=== PATIENT | male | born 1985 | race Caucasian/White ===

== ENCOUNTER 2022-03-02 10:06 | Outpatient (CLI) | payer BC, SELFPAY ==
[2022-03-02 13:51] LABS: Albumin* 4.2 g/dL (3.3-5.0); Chloride* 101 mmol/L (96-114); Sodium* 138 mmol/L (135-149)
[2022-03-02 13:52] LABS: Potassium* 4.3 mmol/L (3.6-5.1)
[2022-03-02 13:54] LABS: Alkaline Phosphatase* 79 U/L (40-150); Aspartate Amino Transferase* 32 U/L (12-35); Bilirubin Total* 0.3 mg/dL (0.1-1.5); Blood Urea Nitrogen* 14 mg/dL (5-24); Carbon Dioxide* 28 mmol/L (20-32); Creatinine* 1.1 mg/dL (0.5-1.5); Estimated Glomerular Filt Rate 89 ml/min; Lipase* 51 U/L (23-300); Total Protein* 7.5 g/dL (6.0-8.3)
[2022-03-02 13:55] LABS: Alanine Aminotransferase* 30 U/L (4-50); Calcium* 9.4 mg/dL (8.4-10.6); Glucose* 105 mg/dL (60-115)
== END 2022-03-02 10:07 | disposition home or self-care (01) ==
PROVIDERS: PCP Physician Assistant Medical; Visit Provider Physician Assistant Medical
DX: R11.10 Vomiting, unspecified (principal); K21.9 Gastro-esophageal reflux disease without esophagitis
CPT/HCPCS: 80053; 83690; 84443

== ENCOUNTER 2022-03-21 10:07 | Outpatient (CLI) | payer BC, SELFPAY ==
--- NOTE | 2022-03-21 11:31 | W.ANESCHARGE ---
Anesthesia Charges Start Date/Time Anesthesia Start Date: 03/21/22 Anesthesia Start Time: 11:06 Stop Date/Time Anesthesia Stop Date: 03/21/22 Anesthesia Stop Time: 11:27 Summary Emergency: No
--- NOTE | 2022-03-21 12:12 | W.ANESCHARGE ---
Anesthesia Charges Start Date/Time Anesthesia Start Date: 03/21/22 Anesthesia Start Time: 11:06 Stop Date/Time Anesthesia Stop Date: 03/21/22 Anesthesia Stop Time: 11:27 Summary Emergency: No
== END 2022-03-21 10:08 | disposition home or self-care (01) ==
LOC: OP CLINIC 10:07
PROVIDERS: PCP Physician Assistant Medical; Visit Provider Surgery
DX: R11.10 Vomiting, unspecified (principal); K21.9 Gastro-esophageal reflux disease without esophagitis; K22.10 Ulcer of esophagus without bleeding; K44.9 Diaphragmatic hernia without obstruction or gangrene; K31.89 Other diseases of stomach and duodenum
CPT/HCPCS: 00731; 43239; 88305; 88341; 88342; J2704; J3490

== ENCOUNTER 2022-04-27 08:12 | Outpatient (CLI) | payer BC, SELFPAY ==
[2022-04-27 14:02] LABS: Iron* 49 ug/dL (49-181)
[2022-04-27 14:13] LABS: Percent Iron Saturation 12 % (20-50); Total Iron Binding Capacity 404 ug/dL (261-462)
[2022-04-27 15:52] LABS: Vitamin B12* 274 pg/mL (243-894)
[2022-04-28 21:44] LABS: Sex Hormone Binding Globulin 30 nmol/L (17-56); Testosterone, Adult Male 187 ng/dL (300-1080); Testosterone, Free Calculation 34 pg/mL (47-244); Testosterone, Percentage Free 1.8 % (1.6-2.9)
[2022-04-28 23:17] LABS: Prolactin 953.1 ng/mL (2.1-17.7)
[2022-04-30 07:09] LABS: Deamidated Gliadin Peptide IgA 82 Units (0-19); Tissue Transglutaminase IgA >100 U/mL (0-3)
== END 2022-04-27 08:13 | disposition home or self-care (01) ==
PROVIDERS: PCP Physician Assistant Medical; Visit Provider Physician Assistant Medical
DX: K21.9 Gastro-esophageal reflux disease without esophagitis (principal); D64.9 Anemia, unspecified
CPT/HCPCS: 82607; 83516; 83540; 83550; 84146; 84270; 84402; 84403; 84443; 86258; 86364

== ENCOUNTER 2022-05-17 07:02 | Outpatient (CLI) | payer BC, SELFPAY ==
--- NOTE | 2022-05-17 07:15 | MR_ITS ---
[facility] [address] [facility] [address] Phone:?[phone] Fax:?[phone] Referring Physician Information: Mary Toure M.D. [id number] [address] Phone:?[phone] Fax:?[phone] Patient:?Renata Vidal D.O.B:?1985 Sex:?Male Phone:?[phone] [facility] MRN:?[id number] Exam Date:?05/17/2022 ? EXAM: MR BRAIN AND PITUITARY GLAND WITHOUT AND WITH CONTRAST CLINICAL INFORMATION: Elevated prolactin, history of prolactinoma. COMPARISON:?MRI pituitary 10/15/2020. TECHNICAL INFORMATION: Axial T2 FLAIR, T2 FSE, and diffusion/ADC images of the brain along with coronal and sagittal T1-weighted and coronal T2 FSE images through the pituitary sella. Following intravenous administration of 15 mL gadoterate meglumine, sagittal and coronal T1-weighted images through the pituitary sella were obtained. INTERPRETATION: Slightly decreased size of the pituitary mass centered to the right of midline within the expanded sella turcica, measuring 1.3 cm craniocaudal by 1.6 cm transverse by 2.0 cm AP, no evidence of cavernous sinus invasion. Stable marked leftward deviation of the pituitary sella. Suprasellar cistern is clear. No acute hemorrhage or infarct. No midline shift. Ventricles and sulci are normal in size. Stable scattered mild to moderate white matter T2 hyperintensities. Basal cisterns are clear. Major intracranial flow voids are present. No cerebellar tonsillar herniation. Orbital structures appear normal. Retention cyst in the left maxillary sinus. Mastoid air cells are clear. Normal-appearing scalp and calvarium. CONCLUSION: 1. Slightly decreased size of the pituitary mass consistent with adenoma. 2. Stable right scattered white matter T2 hyperintensities, possibly representing premature chronic small vessel ischemic change sequelae of various infectious/inflammatory etiologies. Electronically signed on 05/18/2022 12:42:00 AM by Sherwin Santos M.D.
== END 2022-05-17 07:03 | disposition home or self-care (01) ==
LOC: MRI 07:03
PROVIDERS: PCP Physician Assistant Medical; Visit Provider Emergency Medicine
DX: E22.1 Hyperprolactinemia (principal); E23.6 Other disorders of pituitary gland
CPT/HCPCS: 70553; A9575

== ENCOUNTER 2022-08-25 22:53 | Emergency (ER) | payer BC, SELFPAY ==
[2022-08-25 23:01] VITALS: BP 115/82; PULSE 78; RESP 18; TEMP 36.7; O2SAT 99; BMI 38.4
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
[2022-08-25 23:32] VITALS: BP 115/82; PULSE 78; RESP 18; TEMP 36.7
[2022-08-25 23:40] VITALS: BP 113/79; PULSE 84; RESP 18; TEMP 36.6; O2SAT 99
== END 2022-08-25 23:53 | disposition home or self-care (01) ==
LOC: ED 23:24
PROVIDERS: Emergency Provider Emergency Medicine; PCP Physician Assistant Medical
DX: R49.9 Unspecified voice and resonance disorder (principal)
CPT/HCPCS: 99283; 99284

== ENCOUNTER 2023-07-17 08:02 | Outpatient (CLI) | payer BC, SELFPAY | END 2023-07-17 08:03 | disposition home or self-care (01) | LOC: NFLDREF 07-19 07:52 | PROVIDERS: PCP Physician Assistant Medical; Referring Provider Physician Assistant Medical; Visit Provider Physician Assistant Medical | DX: E53.8 Deficiency of other specified B group vitamins (principal); K90.0 Celiac disease; Z13.220 Encounter for screening for lipoid disorders | CPT/HCPCS: 80053; 80061; 82306; 82607; 82746; 83516; 83540; 83550; 86231; 86703; 86803 ==

== ENCOUNTER 2023-08-01 09:00 | Outpatient (RCR) | payer OTHER, BC, SELFPAY | END 2023-10-13 12:25 | disposition home or self-care (01) | PROVIDERS: PCP Physician Assistant Medical; Visit Provider Orthopaedic Surgery | DX: S82.301D Unspecified fracture of lower end of right tibia, subsequent encounter for closed fracture with routine healing (principal); S82.831D Other fracture of upper and lower end of right fibula, subsequent encounter for closed fracture with routine healing; Z51.89 Encounter for other specified aftercare | CPT/HCPCS: 97110; 97116; 97140; 97161 ==

== ENCOUNTER 2024-05-29 13:32 | Outpatient (CLI) | payer BC, SELFPAY | END 2024-05-29 13:33 | disposition home or self-care (01) | PROVIDERS: PCP Physician Assistant Medical; Visit Provider Physician Assistant Medical | DX: D64.9 Anemia, unspecified (principal); E53.8 Deficiency of other specified B group vitamins; E55.9 Vitamin D deficiency, unspecified; E03.9 Hypothyroidism, unspecified; K90.0 Celiac disease; Z13.228 Encounter for screening for other metabolic disorders; Z13.220 Encounter for screening for lipoid disorders | CPT/HCPCS: 80053; 80061; 82306; 82607; 82728; 82747; 84443 ==

== ENCOUNTER 2024-06-11 00:27 | Emergency (ER) | payer BC, SELFPAY ==
--- OUTSIDE RECORDS SUMMARY | 2024-06-11 00:29 | XMS_ITS | Encounter Summary ---
Author Organization [facility] Address [address] [place] [address] Care Team Providers Care Rn Digestive Name Role Phone Unavailable Primary Care Provider Unavailabl e Encounter Details Date Type Department Care Team (Late st Contact Info) Description 05/14/2024 Documentation Division of Endocrinology in [place], [place] [address] [place] [phone] Armida Brush M.D. [address] [place] [address] Social History Tobacco Use Types Packs/Day Years Used Date Smoking Tobacco: Never Smokeless Tobacco: Never Alcohol Use Standard Drinks/Week Comments Never 0 (1 standard drink = 0.6 oz pur e alcohol) [facility] Utilities Answer Date Recorded In the past 12 months has [facility] [employer], gas, oil, or water [employer] threatened to shut off services in your home? No 09/26/2023 Humiliation, Afraid, Rape, and Kick questionnair e Answer Date Recorded Within the last year, have y ou been afraid of your partner or ex-partner? No 08/01/2022 Within the last year, have y ou been humiliated or emotionally abused in other ways by your partner or ex-partner? No Within the last year, have y ou been kicked, hit, slapped, or otherwise physically hurt by your partner or ex-partner? No 08/01/2022 Within the last year, have y ou been raped or forced to have any kind of sexual activity by your partner or ex-partner? No 08/01/2022 Social Connection and Isolat ion Panel [NHANES] Answer Date Recorded In a typical week, how many times do you talk on the phone with family, friends, or neighbors? More than three times a week 08/01/2022 How often do you get togethe r with friends or relatives? Twice a week 08/01/2022 How often do you attend chur or shinto services? More than 4 times per year 08/01/2022 Do you belong to any clubs o r organizations such as anabaptist groups, unions, fraternal or athletic groups, or school groups? No 08/01/2022 How often do you attend meet ings of the clubs or organizations you belong to? Never 08/01/2022 Are you , , di vorced, , never , or living with a partner? Never 08/01/2022 AUDIT-C Answer Date Recorded Q1: How often do you have a drink containing alc ohol? Never 08/01/2022 Average Number of Drinks Not on file 023 Frequency of Binge Drinking Not on file 07/07 Overall Financial Resource Strain (CARDIA) Answe r Date Recorded How hard is it for you to pa y for the very basics like food, housing, medical care, and heating? Not hard at all 08/01/2022 [facility] - Occupational Stress Questionnaire Answer Date Recorded Do you feel stress - tense, restless, nervous, or anxious, or unable to sleep at night because your mind is troubled all the time - these days? Only a little 08/01/2022 Exercise Vital Sign Answer Date Recorde d On average, how many days pe r week do you engage in moderate to strenuous exercise (like a brisk walk)? 2 days 09/26/2023 On average, how many minutes do you engage in exercise at this level? 20 min 09/26/2023 Hunger Vital Sign Answer Date Recorded Within the past 12 months, y ou worried that your food would run out before you got the money to buy more. Sometimes true Within the past 12 months, t he food you bought just didn't last and you didn't have money to get more. Sometimes true PRAPARE - Transportation Answer Date Re corded In the past 12 months, has l ack of transportation kept you from medical appointments or from getting medications? No 09/06 In the past 12 months, has l ack of transportation kept you from meetings, work, or from getting things needed for daily living? No 09/26/2023 Nutrition Answer Date Recorded On average, how many serving s of fruits and vegetables do you eat per day (serving size is equal to 1 cup or approximately the size of a tennis ball)? 0-2 09/26/2023 Dental Answer Date Recorded Dental: Regular Dentist No 08/02/19 Employment Answer Date Recorded Employment status Employed and actively working without restrictions 09/26/2023 Housing Stability Answer Date Recorded What is your living situation today? I have a [facility] place to live 09/26/2023 Education Answer Date Recorded What is the highest level of school you have completed or the highest degree you have received? GED or equivalent Sex and Gender Information Value Date Recorded Sex Assigned at Male 08/01/2022 4:15 AM CDT Legal Sex Male 6:35 PM COUNTY ADMINISTRATOR Gender Identity Male 08/01/2022 4:15 AM CDT Sexual Orientation Straight 08/01/2022 4: 15 AM CDT documented as of this encounter Progress Notes * Armida Brush M.D. 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 Vidal met with Gastroenterology in December. I am concerned he has malabsorption in the setting of celiac disease as he has had variable results with cabergoline and levothyroxine despite beingadherent to his medications. Unfortunately, he is not able to meet with providers at [facility] any longer due to insurance changes. I have messaged him to see if we are in network so we can arrangefor a follow-up visit. Otherwise, I have encouraged him to establish with an parachute repairer and munitions handler that are covered by insurance so that additional testing can be pursued. Ultimately, if he is not well controlled on cabergoline and continues to have hypogonadism, surgical resectioncould be considered. However, there is no good alternative to oral levothyroxine, so it is important that the Gastroenterology issues are addressed. TY ADMINISTRATOR documented in this encounter Plan of Treatment Upcoming Encounters Date Type Department Care Team (Latest Contact Info) Description 07/12/2024 7:00 AM COUNTY ADMINISTRATOR Appointment Department of Laboratory Medicine and Pathology, [facility] in [place], [place] [address] [place] [phone] Armida Brush M.D. [address] [place] [phone] 07/12/2024 10:00 AM COUNTY ADMINISTRATOR Office Visit Division of Endocrinology in [place], [place] [address] [place] [phone] Armida Brush M.D. [address] [place] [phone] 07/12/2024 12:00 PM COUNTY ADMINISTRATOR Appointment Department of Radiology, [facility] in [place], [place] [address] [place] [phone] Armida Brush M.D. [address] [place] [phone] 07/15/2024 1:20 PM CDT Clinical Support - [facility] Division of Gastroenterology in [place], [place] [address] [place] [phone] 07/15/2024 2:10 PM CDT Comprehensive Visit Division of Gastroenterology in [place], [place] [address] [place] [phone] Armida Brush M.D. [address] [place] [phone] documented as of this encounter Visit Diagnoses Not on filedocumented in this encounter
--- OUTSIDE RECORDS SUMMARY | 2024-06-11 00:29 | XMS_ITS | Encounter Summary ---
Author Organization [facility] Address [address] [place] [address] Care Team Providers Care Laboratory Animal Caretaker Name Role Phone Unavailable Primary Care Provider Unavailabl e Reason for Referral * Outpatient (Routine) - Authorized Specialty Diagnoses / Procedures Referred By Jim t Referred To Contact Endocrinology Diagnoses Celiac Disease Prolactinoma (HCC) Hypothyroidism Secondary Armida Brush M.D. [address] [place] [address] Phone: tel: fax: [facility] Referral ID Status Reason Start Date Expiration Date V isits Requested Visits Authorized [id number] Authorized 05/22/2024 11/21/2025 1 1 LE BLOWER * MRI/CAT/PET Scan (Routine) - Pending Review Specialty Diagnoses / Procedures Referred By Contac t Referred To Contact Radiology Diagnoses Celiac Disease Prolactinoma (HCC) Hypothyroidism Secondary Procedures MR Pituitary without and with IV Contrast Armida Brush M.D. [address] [place] [address] Phone: tel: fax: [facility] Referral ID Status Reason Start Date Expiration Date V isits Requested Visits Authorized [id number] Pending Review 05/22/2024 05/22/2025 1 1 LE BLOWER * Outpatient (Routine) - Authorized Specialty Diagnoses / Procedures Referred By Contact Referred To Contact Gastroenterology and Hepatology Diagnoses Celiac Disease Prolactinoma (HCC) Hypothyroidism Secondary Armida Brush M.D. [address] [place] [phone] Phone: tel: fax: [facility] Referral ID Status Reason Start Date Expiration Date V isits Requested Visits Authorized [id number] Authorized 05/22/2024 11/21/2025 1 1 Scheduling Instructions GIH consult should be scheduled after all testing LE BLOWER Encounter Details Date Type Department Care Team (Late st Contact Info) Description 05/22/2024 Orders Only Division of Endocrinology in [place], [place] [address] [place] [phone] Armida Brush M.D. [address] [place] [phone] Celiac Disease (Primary Dx); Prolactinoma (HCC); Hypothyroidism Secondary Social History Tobacco Use Types Packs/Day Years Used Date Smoking Tobacco: Never Smokeless Tobacco: Never Alcohol Use Standard Drinks/Week Comments Never 0 (1 standard drink = 0.6 oz pur e alcohol) [facility] Utilities Answer Date Recorded In the past 12 months has [facility] [employer], gas, oil, or water [employer] threatened to shut off services in your [...] 08/01/2022 How often do you attend chur ch or buddhist services? More than 4 times per year 08/01/2022 Do you belong to any clubs o r organizations such as jewish groups, unions, fraternal or athletic groups, or [...] and heating? Not hard at all 08/01/2022 [facility] of Occupat ional Health - Occupational Stress [...] your living situation today? I have a [facility] place to live 09/26/2023 Education Answer Date Recorded What is the highest level of school you have completed or the highest degree you have received? GED or equivalent Sex and Gender Information Value Date Recorded Sex Assigned at Male 08/01/2022 4:15 AM CDT Legal Sex Male 6:35 PM BOTTLE BLOWER Gender Identity Male 08/01/2022 4:15 AM CDT Sexual Orientation Straight 08/01/2022 4: 15 AM CDT documented as of this encounter Plan of Treatment Upcoming Encounters Date Type Department Care Team (Latest Contact Info) Description 07/12/2024 7:00 AM BOTTLE BLOWER Appointment Department of Laboratory Medicine and Pathology, [facility] in [place], [place] [address] [place] [address] Armida Brush M.D. [address] [place] [phone] 07/12/2024 10:00 AM BOTTLE BLOWER Office Visit Division of Endocrinology in [place], [place] [address] [place] [phone] Armida Brush M.D. [address] [place] [phone] 07/12/2024 12:00 PM BOTTLE BLOWER Appointment Department of Radiology, [facility] in [place], [place] [address] [place] [address] Armida Brush M.D. [address] [place] [phone] 07/15/2024 1:20 PM CDT Clinical Support - [facility] Division of Gastroenterology in [place], [place] [address] [place] [address] 07/15/2024 2:10 PM CDT Comprehensive Visit Division of Gastroenterology in [place], [place] [address] [place] [address] Armida Brush M.D. [address] [place] [address] Scheduled Orders Name Type Priority Associated Diagnoses Order Schedule CBC without Differential Lab Routine Celiac Disease Prolactinoma (HCC) Hypothyroidism Secondary Expected: 05/22/2024, Expires: 08/20/2025 MR Pituitary without and with IV Contrast Imaging RAD - Routine (most inpatients and all outpatients) Celiac Disease Prolactinoma (HCC) Hypothyroidism Secondary Expected: 05/22/2024 (Approximate), Expires: 08/20/2025 Prolactin Lab Routine Celiac Disease Prolactinoma (HCC) Hypothyroidism Secondary Expected: 05/22/2024, Expires: 05/22/2025 T4 (Thyroxine), Free Lab Routine Celiac Disease Prolactinoma (HCC) Hypothyroidism Secondary Expected: 05/22/2024, Expires: 08/20/2025 Cortisol Lab Routine Celiac Disease Prolactinoma (HCC) Hypothyroidism Secondary Expected: 05/22/2024, Expires: 08/20/2025 Testosterone, Total and Free Lab Routine Celiac Disease Prolactinoma (HCC) Hypothyroidism Secondary Expected: 05/22/2024, Expires: 08/20/2025 Scheduled Referrals Name Type Priority Associated Diagnoses Order Schedule Gastroenterology and Hepatology - Celiac consult (clinic) Outpatient Referral Routine Celiac Disease Prolactinoma (HCC) Hypothyroidism Secondary Expected: 05/22/2024, Expires: 08/20/2025 Endocrinology office visit (clinic) Outpatient Referral Routine Celiac Disease Prolactinoma (HCC) Hypothyroidism Secondary Expected: 05/22/2024, Expires: 08/20/2025 documented as of this encounter Visit Diagnoses Diagnosis Celiac Disease- Primary Prolactinoma (HCC) Hypothyroidism Secondary documented in this encounter
--- OUTSIDE RECORDS SUMMARY | 2024-06-11 00:29 | XMS_ITS | Clinical Summary ---
Author Organization [facility] Address [address] [place] [address] Care Team Providers Care Straightening Machine Operator Name Role Phone Unavailable Primary Care Provider Unavailabl e Source Comments Patient records contain information from all sites at [facility]. For routine questions regarding patient records, call [phone] during business hours, M-F 8:00 AM - 5:00 PM Central Time. Record requests for emergency care only can be directed to [phone] at any time.[facility] Allergies No known active allergies Medications * This document contains information received from the source organization and may not represent a complete record from that organization. cholecalciferol , vitamin D3, 25 mcg (1,000 Unit) tablet TAKE 1 TABLET BY MOUTH ONCE DAILY FOR CELIAC DISEASE SUPPLEMENT FOR VITAMIN D 3 Active cyanocobalamin (VITAMIN B12) 1,000 mcg tablet TAKE 1 TABLET BY MOUTH ONCE DAILY FOR B12 DEFICIENCY 3 Active FeroSuL 325 mg (65 mg iron) tablet Take 65 mg of iron by mouth daily. 2 Active topiramate (TOPAMAX) 25 mg tablet TAKE 1 TABLET BY MOUTH TWICE DAILY FOR WEIGHT MANAGEMENT (OK TO START WITH 1 TABLET ONCE DAILY FOR THE FIRST WEEK) 3 Active NAPROXEN ORAL Take 500 mg by mouth as needed. 2 Active cabergoline (DOSTINEX) 0.5 mg tablet Take 2 tablets (1 mg) on Mondays and 2 tablets (1 mg) on Fridays. Take 1 tablet (0.5 mg) on Wednesdays. 32 tablet 3 4 Active levothyroxine (SYNTHROID, LEVOTHROID) 112 mcg tablet Take 1 tablet (112 mcg total) by mouth every morning before breakfast. 90 tablet 3 4 Active famotidine (PEPCID) 20 mg tablet Take 1 tablet (20 mg total) by mouth at bedtime. 90 tablet 3 4 09/27/19 25 Active triamcinolone (KENALOG) 0.5 % cream Apply 1 Application topically 2 (two) times a day. 4 Active famotidine (PEPCID) 20 mg tablet Take 20 mg by mouth 2 (two) times a day. 3 Active Active Problems Problem Noted Date Diagnosed Date Sleep Apnea 09/28/2023 Obesity Unspecified 09/28/2023 Other Disorders Of Pituitary Gland 09/28/2023 Gastroesophageal Reflux Disease NOS 09/28/2023 Obsessive Compulsive Disorder 09/28/2023 Attention Deficit Hyperactive Disorder 4 Hyperprolactinemia 09/28/2023 Encounters Date Type Department Care Team Description 05/22/2024 Orders Only Division of Endocrinology in [place], [place] [address] [place] [address] Armida Brush M.D. Celiac Disease (Primary Dx); Prolactinoma (HCC); Hypothyroidism Secondary 05/14/2024 Documentation Division of Endocrinology in [place], [place] [address] [place] [address] Armida Brush M.D. from Last 3 Months Immunizations Immunization Administration Dates Next Due SARS-COV-2 (COVID-19) - PFIZ ER (Discontinued)(12 years or older) 05/21/2021,08/07/2020,07/15/2020 Social History Tobacco Use Types Packs/Day Years Used Date Smoking Tobacco: Never Smokeless Tobacco: Never Tobacco Cessation:Counseling Given: Not Answered Alcohol Use Standard Drinks/Week Comments Never 0 (1 standard drink = 0.6 oz pur e alcohol) [facility] Utilities Answer Date Recorded In the past 12 months has [facility] [employer], gas, oil, or water [employer] threatened to shut off services in your [...] week 08/01/2022 How often do you attend [facility] or baptism services? More than 4 times per year 08/01/2022 Do you belong to any clubs o r organizations such as alevism groups, unions, fraternal or athletic groups, or [...] and heating? Not hard at all 08/01/2022 [facility] [place] of Occupat ional Health - Occupational Stress [...] your living situation today? I have a [facility] place to live 09/26/2023 Education Answer Date Recorded What is the highest level of school you have completed or the highest degree you have received? GED or equivalent Sex and Gender Information Value Date Recorded Sex Assigned at Male 08/01/2022 4:15 AM CDT Legal Sex Male 6:35 PM DIRECTOR EMERGENCY DEPARTMENT Gender Identity Male 08/01/2022 4:15 AM CDT Sexual Orientation Straight 08/01/2022 4: 15 AM CDT Last Filed Vital Signs Vital Sign Reading Time Taken Comments Blood Pressure 97/65 10/06/2023 2:45 PM CDT Pulse 85 10/06/2023 2:45 PM CDT Temperature 36.2 C (97.2 F) 10/06/2023 2:44 PM CDT Respiratory Rate 13 10/06/2023 2:45 PM CDT Oxygen Saturation 92% 10/06/2023 2:45 PM CDT Inhaled Oxygen Concentration - - Weight 113 kg (248 lb 3.8 oz) 07/19/2022 7:23 AM CDT Height 171.4 cm (5' 7.48) 07/19/2022 7:23 AM CD T Body Mass Index 38.33 07/19/2022 7:23 AM CDT Plan of Treatment Upcoming Encounters Date Type Department Care Team (Latest Contact Info) Description 07/12/2024 7:00 AM DIRECTOR EMERGENCY DEPARTMENT Appointment Department of Laboratory Medicine and Pathology, [facility] in [place], [place] [address] [place] [phone] Armida Brush M.D. [address] [place] [phone] 07/12/2024 10:00 AM DIRECTOR EMERGENCY DEPARTMENT Office Visit Division of Endocrinology in [place], [place] [address] [place] [phone] Armida Brush M.D. [address] [place] [phone] 07/12/2024 12:00 PM DIRECTOR EMERGENCY DEPARTMENT Appointment Department of Radiology, [facility] in [place], [place] [address] [place] [phone] Armida Brush M.D. [address] [place] [phone] 07/15/2024 1:20 PM CDT Clinical Support - [facility] Division of Gastroenterology in [place], [place] [address] [place] [phone] 07/15/2024 2:10 PM CDT Comprehensive Visit Division of Gastroenterology in [place], [place] [address] [place] [phone] Armida Brush M.D. [address] [place] [phone] Health Maintenance Due Date Last Done Comments Hepatitis C Screening 1984 Lipid (Cholesterol) Screening 1984 Thyroid Stimulating Hormone (TSH) test for thyroid function 1984 Hepatitis B Vaccines (1 of 3 - 19+ 3-dose series) 2003 DTaP,Tdap,and Td Vaccines (2 - Td or Tdap) 05/25/2016 05/25/2006 COVID-19 Vaccine (4 - 2023-2 5 season) 2024 05/21/2021, 08/07/2020, 07/15/2020 Influenza Vaccine (#1) 2024 Depression Screening (Annual PHQ-2) 05/08/2024 HPV Vaccines Aged Out No longer eligi ble based on patient's age to complete this topic IPV Vaccines Aged Out No longer eligi ble based on patient's age to complete this topic Pneumococcal vaccine (0-49 years) Aged Out No longer eligible b ased on patient's age to complete this topic Medical Devices Implanted Type Area Energy And Conservation Technician Device Identifier Shelf Expiration Date Model / Serial / Lot Hardware E.G. Pins/Screws/Ro ds Hardware e.g. pins/screws/ rods Right: Leg Insurance [facility] Advance Directives For more information, please contact: [phone] * Full Code (Latest Code Status on File) Date Activated Date Inactivated Comments 10/06/2023 12:49 PM 10/07/2023 5:56 AM Question Answer Comments Full Code: Discussed
[2024-06-11 00:42] VITALS: BP 121/74; PULSE 85; RESP 18; TEMP 36.9; O2SAT 96; BMI 39.2
[2024-06-11 01:26] LABS: PCR FLU A Negative PCR FLU A (Negative); PCR FLU B Negative PCR FLU B (Negative); PCR RSV Negative PCR RSV (Negative); SARS PCR* Negative SARS-CoV-2 (Negative)
[2024-06-11 02:24] VITALS: BP 119/80; PULSE 87; RESP 18; TEMP 36.9; O2SAT 96
[2024-06-11 02:25] VITALS: BP 119/80; PULSE 87; RESP 18; TEMP 36.9
--- OUTSIDE RECORDS SUMMARY | 2024-06-11 02:29 | XMS_ITS | Encounter Summary ---
Author Organization [facility] Address [address] [place] [address] Care Team Providers Care Geographic Information Systems Manager Name Role Phone Unavailable Primary Care Provider Unavailabl e Reason for Referral * Outpatient (Routine) - Authorized Specialty Diagnoses / Procedures Referred By Jim t Referred To Contact Endocrinology Diagnoses Celiac Disease Prolactinoma (HCC) Hypothyroidism Secondary Armida Brush M.D. [address] [place] [address] Phone: tel: fax: [facility] Referral ID Status Reason Start Date Expiration Date V isits Requested Visits Authorized [id number] Authorized 05/22/2024 11/21/2025 1 1 STAMP OPERATOR * MRI/CAT/PET Scan (Routine) - Pending Review Specialty Diagnoses / Procedures Referred By Contac t Referred To Contact Radiology Diagnoses Celiac Disease Prolactinoma (HCC) Hypothyroidism Secondary Procedures MR Pituitary without and with IV Contrast Armida Brush M.D. [address] [place] [address] Phone: tel: fax: [facility] Referral ID Status Reason Start Date Expiration Date V isits Requested Visits Authorized [id number] Pending Review 05/22/2024 05/22/2025 1 1 STAMP OPERATOR * Outpatient (Routine) - Authorized Specialty Diagnoses / Procedures Referred By Contact Referred To Contact Gastroenterology and Hepatology Diagnoses Celiac Disease Prolactinoma (HCC) Hypothyroidism Secondary Armida Brush M.D. [address] [place] [phone] Phone: tel: fax: [place] [facility] Referral ID Status Reason Start Date Expiration Date V isits Requested Visits Authorized [id number] Authorized 05/22/2024 11/21/2025 1 1 Scheduling Instructions GIH consult should be scheduled after all testing STAMP OPERATOR Encounter Details Date Type Department Care Team (Late st Contact Info) Description 05/22/2024 Orders Only Division of Endocrinology in [place], [place] [address] [place] [phone] Armida Brush M.D. [address] [place] [phone] Celiac Disease (Primary Dx); Prolactinoma (HCC); Hypothyroidism Secondary Social History Tobacco Use Types Packs/Day Years Used Date Smoking Tobacco: Never Smokeless Tobacco: Never Alcohol Use Standard Drinks/Week Comments Never 0 (1 standard drink = 0.6 oz pur e alcohol) [facility] Utilities Answer Date Recorded In the past 12 months has [facility] [employer], gas, oil, or water [employer] threatened to shut off services in your [...] often do you attend chur ch or caodaism services? More than 4 times per year 08/01/2022 Do you belong to any clubs o r organizations such as rastafarian groups, unions, fraternal or athletic groups, or [...] and heating? Not hard at all 08/01/2022 [facility] of Occupat ional Health - Occupational [...] your living situation today? I have a [facility] place to live 09/26/2023 Education Answer Date Recorded What is the highest level of school you have completed or the highest degree you have received? GED or equivalent Sex and Gender Information Value Date Recorded Sex Assigned at Male 08/01/2022 4:15 AM CDT Legal Sex Male 6:35 PM FOIL STAMP OPERATOR Gender Identity Male 08/01/2022 4:15 AM CDT Sexual Orientation Straight 08/01/2022 4: 15 AM CDT documented as of this encounter Plan of Treatment Upcoming Encounters Date Type Department Care Team (Latest Contact Info) Description 07/12/2024 7:00 AM FOIL STAMP OPERATOR Appointment Department of Laboratory Medicine and Pathology, [facility] in [place], [place] [address] [place] [address] Armida Brush M.D. [address] [place] [phone] 07/12/2024 10:00 AM FOIL STAMP OPERATOR Office Visit Division of Endocrinology in [place], [place] [address] [place] [address] Armida Brush M.D. [address] [place] [phone] 07/12/2024 12:00 PM FOIL STAMP OPERATOR Appointment Department of Radiology, [facility] in [place], [place] [address] [place] [address] Armida Brush M.D. [address] [place] [address] 07/15/2024 1:20 PM CDT Clinical Support - [facility] Division of Gastroenterology in [place], [place] [address] [place] [address] 07/15/2024 2:10 PM CDT Comprehensive Visit Division of Gastroenterology in [place], [place] [address] [place] [address] Armida Brush M.D. [address] [place] [address] Scheduled Orders Name Type Priority Associated Diagnoses [...]
--- OUTSIDE RECORDS SUMMARY | 2024-06-11 02:29 | XMS_ITS | Encounter Summary ---
Author Organization [facility] Address [address] [place] [address] Care Team Providers Care Photogrammetric Tech Name Role Phone Unavailable Primary Care Provider Unavailabl e Encounter Details Date Type Department Care Team (Late st Contact Info) Description 05/14/2024 Documentation Division of Endocrinology in [place], [place] [address] [place] [phone] Armida Brush M.D. [address] [place] [address] Social History Tobacco Use Types Packs/Day Years Used Date Smoking Tobacco: Never Smokeless Tobacco: Never Alcohol Use Standard Drinks/Week Comments Never 0 (1 standard drink = 0.6 oz pur e alcohol) [facility] Utilities Answer Date Recorded In the past 12 months has [facility] [employer], gas, oil, or water [employer] threatened to shut off services in your [...] How often do you attend chur or worship services? More than 4 times per year 08/01/2022 Do you belong to any clubs o r organizations such as druze groups, unions, fraternal or athletic groups, or [...] and heating? Not hard at all 08/01/2022 [facility] of Occupat ional Health - Occupational [...] your living situation today? I have a [facility] place to live 09/26/2023 Education Answer Date Recorded What is the highest level of school you have completed or the highest degree you have received? GED or equivalent Sex and Gender Information Value Date Recorded Sex Assigned at Male 08/01/2022 4:15 AM CDT Legal Sex Male 6:35 PM ELECTRICIAN SHOP Gender Identity Male 08/01/2022 4:15 AM CDT [...] not able to meet with providers at [facility] any longer due to insurance changes. I have messaged him to see if we are in network so we can arrangefor a follow-up visit. Otherwise, I have encouraged him to establish with an vision specialist and invasive cardiologist that are covered by insurance so that additional testing can be pursued. Ultimately, if he is not well controlled on cabergoline and continues to have hypogonadism, surgical resectioncould be considered. However, there is no good alternative to oral levothyroxine, so it is important that the Gastroenterology issues are addressed. TRICIAN SHOP documented in this encounter Plan of Treatment Upcoming Encounters Date Type Department Care Team (Latest Contact Info) Description 07/12/2024 7:00 AM ELECTRICIAN SHOP Appointment Department of Laboratory Medicine and Pathology, [facility] in [place], [place] [address] [place] [phone] Armida Brush M.D. [address] [place] [phone] 07/12/2024 10:00 AM ELECTRICIAN SHOP Office Visit Division of Endocrinology in [place], [place] [address] [place] [phone] Armida Brush M.D. [address] [place] [phone] 07/12/2024 12:00 PM ELECTRICIAN SHOP Appointment Department of Radiology, [facility] in [place], [place] [address] [place] [phone] Armida Brush M.D. [address] [place] [phone] 07/15/2024 1:20 PM CDT Clinical Support - [facility] Division of Gastroenterology in [place], [place] [address] [place] [phone] 07/15/2024 2:10 PM CDT Comprehensive Visit Division of Gastroenterology in [place], [place] [address] [place] [phone] Armida Brush M.D. [address] [place] [phone] documented as of this encounter Visit Diagnoses Not on filedocumented in this encounter
--- OUTSIDE RECORDS SUMMARY | 2024-06-11 02:29 | XMS_ITS | Clinical Summary ---
Author Organization [facility] Address [address] [place] [address] Care Team Providers Care Green Building Materials Designer Name Role Phone Unavailable Primary Care Provider Unavailabl e Source Comments Patient records contain information from all sites at [facility]. For routine questions regarding patient records, call [phone] during business hours, M-F 8:00 AM - 5:00 PM Central Time. Record requests for emergency care only can be directed to [phone] at any time.[facility] Allergies No known active allergies [...] 05/22/2024 Orders Only Division of Endocrinology in [place], [place] [address] [place] [address] Armida Brush M.D. Celiac Disease (Primary Dx); Prolactinoma (HCC); Hypothyroidism Secondary 05/14/2024 Documentation Division of Endocrinology in [place], [place] [address] [place] [address] Armida Brush M.D. from Last 3 Months Immunizations Immunization Administration Dates Next Due SARS-COV-2 (COVID-19) - PFIZ ER (Discontinued)(12 years or older) 05/21/2021,08/07/2020,07/15/2020 Social History Tobacco Use Types Packs/Day Years Used Date Smoking Tobacco: Never Smokeless Tobacco: Never Tobacco Cessation:Counseling Given: Not Answered Alcohol Use Standard Drinks/Week Comments Never 0 (1 standard drink = 0.6 oz pur e alcohol) [facility] Utilities Answer Date Recorded In the past 12 months has [facility] [employer], gas, oil, or water [employer] threatened to shut off services in your [...] week 08/01/2022 How often do you attend [facility] or christian services? More than 4 times per year 08/01/2022 Do you belong to any clubs o r organizations such as episcopal groups, unions, fraternal or athletic groups, or [...] and heating? Not hard at all 08/01/2022 [facility] [place] of Occupat ional Health - Occupational Stress [...] your living situation today? I have a [facility] place to live 09/26/2023 Education Answer Date Recorded What is the highest level of school you have completed or the highest degree you have received? GED or equivalent Sex and Gender Information Value Date Recorded Sex Assigned at Male 08/01/2022 4:15 AM CDT Legal Sex Male 6:35 PM STRAIGHT KNIFE MACHINE CUTTER Gender Identity Male 08/01/2022 4:15 AM CDT [...] (Latest Contact Info) Description 07/12/2024 7:00 AM STRAIGHT KNIFE MACHINE CUTTER Appointment Department of Laboratory Medicine and Pathology, [facility] in [place], [place] [address] [place] [phone] Armida Brush M.D. [address] [place] [phone] 07/12/2024 10:00 AM STRAIGHT KNIFE MACHINE CUTTER Office Visit Division of Endocrinology in [place], [place] [address] [place] [phone] Armida Brush M.D. [address] [place] [phone] 07/12/2024 12:00 PM STRAIGHT KNIFE MACHINE CUTTER Appointment Department of Radiology, [facility] in [place], [place] [address] [place] [phone] Armida Brush M.D. [address] [place] [phone] 07/15/2024 1:20 PM CDT Clinical Support - [facility] Division of Gastroenterology in [place], [place] [address] [place] [phone] 07/15/2024 2:10 PM CDT Comprehensive Visit Division of Gastroenterology in [place], [place] [address] [place] [phone] Armida Brush M.D. [address] [place] [phone] Health Maintenance Due Date Last Done Comments [...] this topic Medical Devices Implanted Type Area Consulting Utility Forester Device Identifier Shelf Expiration Date Model / Serial / Lot Hardware E.G. Pins/Screws/Ro ds Hardware e.g. pins/screws/ rods Right: Leg Insurance [facility] Advance Directives For more information, please contact: [phone] * Full Code (Latest Code Status on File) Date Activated Date Inactivated Comments 10/06/2023 12:49 PM 10/07/2023 5:56 AM Question Answer Comments Full Code: Discussed
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
== END 2024-06-11 02:31 | disposition home or self-care (01) ==
LOC: ED 02:28
PROVIDERS: Emergency Provider Family Medicine; PCP Physician Assistant Medical
DX: J06.9 Acute upper respiratory infection, unspecified (principal)
CPT/HCPCS: 87631; 99283

== ENCOUNTER 2025-04-11 14:08 | Outpatient (CLI) | payer BC, SELFPAY | END 2025-04-11 14:09 | disposition home or self-care (01) | PROVIDERS: PCP Physician Assistant Medical; Visit Provider Physician Assistant Medical | DX: D64.9 Anemia, unspecified (principal) | CPT/HCPCS: 82306; 82607; 82728 ==